=== PATIENT | male | born 1975 | race Caucasian/White ===

== ENCOUNTER 2017-05-18 19:22 | Emergency (ER) | payer OTHER ==
[~2017-05-18] VITALS: Ht 177.8 cm; Wt 77.1 kg
[~2017-05-18 19:22] MED LIST: ACETAMINOPHEN-1 EAC1 PO; BACTRIM DS TAB1 EACH PO; BACTROBAN NASAL1 GM NASAL; BACTROBAN22 GM TP; DOXYCYCLINE 10100 MG PO; HIBICLENS120 ML TP; HYDROCODONE-AP1 EAC6 PO; IBUPROFEN 800800 M1 PO; KEFLEX500 MG PO; NOHOMEMEDICATIONS; NORCO 5-325 TA1 EACH PO; PERCOCET 5-3251 EACH PO; TOBRAMYCIN SULFA5 ML OP; TRAMADOL 50 MG50 MG PO; TRAZODONE 150150 M1 PO; WELLBUTRIN100 MG PO
[2017-05-18] MEDS ORDERED: IBUPROFEN 800800 MG PO (20:09)
[2017-05-18 20:18] VITALS: BP 134/80
== END 2017-05-18 20:18 | disposition home or self-care (01) ==
LOC: M.ERS 19:22
DX: R20.2 Paresthesia of skin (principal); M79.602 Pain in left arm; Z86.14 Personal history of Methicillin resistant Staphylococcus aureus infection

== ENCOUNTER 2017-08-03 20:42 | Emergency (ER) | payer OTHER ==
[~2017-08-03] VITALS: Ht 180.3 cm; Wt 77.1 kg
[~2017-08-03 20:42] MED LIST changes: +IBUPROFEN 800800 MG PO
[2017-08-03] MEDS ORDERED: WELLBUTRIN 100100 MG (20:51)
[2017-08-03] MEDS ORDERED: NAPROSYN500 MG PO (21:39)
[2017-08-03] MEDS ORDERED: KEFLEX500 M1 PO (21:39)
[2017-08-03 21:55] VITALS: BP 110/84
== END 2017-08-03 21:55 | disposition home or self-care (01) ==
LOC: M.ERS 20:42
DX: S61.412A Laceration without foreign body of left hand, initial encounter (principal); Z86.14 Personal history of Methicillin resistant Staphylococcus aureus infection; Z91.5 Personal history of self-harm; W26.0XXA Contact with knife, initial encounter; Y93.89 Activity, other specified; Y92.89 Other specified places as the place of occurrence of the external cause; Y99.8 Other external cause status

== ENCOUNTER 2017-09-08 21:06 | Emergency (ER) | payer OTHER ==
[~2017-09-08] VITALS: Ht 180.3 cm; Wt 76.2 kg
[~2017-09-08 21:06] MED LIST changes: +KEFLEX500 M1 PO; +NAPROSYN500 MG PO; +WELLBUTRIN 100100 MG
[2017-09-08] MEDS ORDERED: SUBOXONE 12 MG1 EACH SUBLING (21:20)
[2017-09-08] MEDS ORDERED: IBUPROFEN 800800 M1 PO (21:40)
[2017-09-08] MEDS ORDERED: ERYTHROMYCIN E3.5 G2 OPHTHALMIC (21:40)
[2017-09-08 21:57] VITALS: BP 106/66
== END 2017-09-08 21:58 | disposition home or self-care (01) ==
LOC: M.ERS 21:06
DX: S05.02XA Injury of conjunctiva and corneal abrasion without foreign body, left eye, initial encounter (principal); X58.XXXA Exposure to other specified factors, initial encounter; Y93.89 Activity, other specified; Y92.89 Other specified places as the place of occurrence of the external cause; Y99.8 Other external cause status

== ENCOUNTER 2019-01-10 01:07 | Emergency (ER) | payer OTHER ==
[~2019-01-10] VITALS: Ht 180.3 cm; Wt 75.1 kg
[~2019-01-10 01:07] MED LIST changes: +ERYTHROMYCIN E3.5 G2 OPHTHALMIC; +SUBOXONE 12 MG1 EACH SUBLING
[2019-01-10 01:13] VITALS: BP 137/80
--- NOTE | 2019-01-10 16:29 | EKG ---
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
== END 2019-01-10 01:38 ==
LOC: M.ERS 01:07
DX: R07.89 Other chest pain (principal)

== ENCOUNTER 2019-02-21 05:31 | Emergency (ER) | payer OTHER ==
[~2019-02-21] VITALS: Ht 180.3 cm; Wt 77.1 kg
[2019-02-21] MEDS ORDERED: TORADOL 10 MG T10 MG PO (06:24)
[2019-02-21] MEDS ORDERED: HYDROCODON-ACE1 EAC7 PO (06:24)
[2019-02-21 06:36] VITALS: BP 123/87
== END 2019-02-21 06:36 | disposition home or self-care (01) ==
LOC: M.ERS 05:31
DX: S20.212A Contusion of left front wall of thorax, initial encounter (principal); Z86.14 Personal history of Methicillin resistant Staphylococcus aureus infection; Y04.0XXA Assault by unarmed brawl or fight, initial encounter; Y93.89 Activity, other specified; Y92.89 Other specified places as the place of occurrence of the external cause; Y99.8 Other external cause status